=== PATIENT | male | born 1995 | race Caucasian/White ===

== ENCOUNTER 2017-11-16 13:21 | Emergency (ER) | payer SELFPAY, MEDICAID ==
[2017-11-16] MEDS: SOD CHLORIDE 0.9% 500 ML IV (14:50)
[2017-11-16] MEDS: ONDANSETRON 4 MG INJ IV (14:53)
[2017-11-16 14:54] LABS: ADD UMIC NO; UR ASCORBIC ACID NEGATIVE (NEGATIVE); UR BILIRUBIN (Dip) NEGATIVE (NEGATIVE); UR BLOOD (Dip) NEGATIVE (NEGATIVE); UR CLARITY CLEAR (CLEAR); UR COLOR YELLOW (YELLOW); UR GLUCOSE (Dip) NEGATIVE (NEGATIVE); UR KETONES (Dip) TRACE mg/dL (NEGATIVE); UR LEUKOCYTE ESTERASE (Dip) NEGATIVE Leu/ul (NEGATIVE); UR NITRITE (Dip) NEGATIVE (NEGATIVE); UR SPECIFIC GRAVITY (Dip) 1.025 (1.003-1.030); UR TOTAL PROTEIN (Dip) NEGATIVE (NEGATIVE); UR UROBILINOGEN (Dip) NEGATIVE (NEGATIVE)
[2017-11-16 15:05] LABS: ADD MAN DIFF? NO
[2017-11-16 15:08] LABS: WHITE BLOOD COUNT 9.9 10^3/ul (4.8-10.8)
[2017-11-16 15:08] LABS: BASOPHILS % 0.3 % (0.0-2.0); EOSINOPHILS % 0.4 % (0.0-7.0); HEMATOCRIT 48.2 % (42.0-52.0); HEMOGLOBIN 16.7 g/dl (14.0-18.0); MEAN CORPUSCULAR HEMOGLOBIN 30.3 pg (29.0-33.0); MEAN CORPUSCULAR HGB CONC 34.6 g/dl (32.0-37.0); MEAN CORPUSCULAR VOLUME 87.3 fl (82.0-101.0); MEAN PLATELET VOLUME 10.6 fl (7.4-10.4); MONOCYTE # 0.7 10^3/ul (0.3-0.9); MONOCYTES % 6.8 % (0.0-11.0); NEUTROPHIL # 6.2 10^3/ul (1.6-7.5); NEUTROPHILS % 62.2 % (39.0-77.0); PLATELET COUNT 218 10^3/UL (140-415); RED BLOOD COUNT 5.52 10^6/ul (4.70-6.10); RED CELL DISTRIBUTION WIDTH 12.2 % (11.5-14.5)
[2017-11-16 15:42] LABS: ALANINE AMINOTRANSFERASE 82 IU/L (13-69); ALBUMIN 5.1 g/dl (3.3-4.9); ALBUMIN/GLOBULIN RATIO 1.45; ALKALINE PHOSPHATASE 83 IU/L (42-121); ANION GAP 17 (8-16); ASPARTATE AMINO TRANSFERASE 53 IU/L (15-46); BILIRUBIN,INDIRECT 0.4 mg/dl (0-1.1); BILIRUBIN,TOTAL 0.4 mg/dl (0.2-1.3); BLOOD UREA NITROGEN 14 mg/dl (7-20); CARBON DIOXIDE 32 mmol/L (21-31); CHLORIDE 100 mmol/L (97-110); CREATININE 0.95 mg/dl (0.61-1.24); GLUCOSE 100 mg/dl (70-220); LIPASE 81 U/L (23-300); SODIUM 145 mmol/L (135-144); TOTAL PROTEIN 8.6 g/dl (6.1-8.1)
== END 2017-11-16 16:26 | disposition home or self-care (01) ==
LOC: FTE 13:21
DX: R11.10 Vomiting, unspecified (principal); R19.7 Diarrhea, unspecified; R10.31 Right lower quadrant pain; R10.32 Left lower quadrant pain; J45.909 Unspecified asthma, uncomplicated
CPT/HCPCS: 36415; 74176; 80053; 81003; 83690; 85025; 96374; 99285-25